=== PATIENT | female | born 1985 | race African-American/Black ===

== ENCOUNTER 2016-05-02 04:14 | Emergency (ER) | payer MEDICAID, BC ==
[~2016-05-02] VITALS: Ht 162.6 cm; Wt 52.6 kg
--- NOTE | 2016-05-02 04:14 | NUR ---
Patient to ER Chair 1 to gown for evaluation. Side rails up. Report given to BERNARD Veloz.
--- NOTE | 2016-05-02 04:16 | NUR ---
[employer] for medical clearence , hx of diabetes. Dr Molina aware.
[2016-05-02 04:36] VITALS: BP 137/80; PULSE 106; RESP 16; TEMP 98.4; O2SAT 97
--- NOTE | 2016-05-02 05:00 | NUR ---
ER at bedside examining patient.
[2016-05-02 05:15] VITALS: BP 137/80; PULSE 106; RESP 16; TEMP 98.4; O2SAT 97
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
== END 2016-05-02 05:16 ==
LOC: SED 04:14
DX: Z02.89 Encounter for other administrative examinations (principal); E03.9 Hypothyroidism, unspecified; E11.8 Type 2 diabetes mellitus with unspecified complications; Z88.8 Allergy status to other drugs, medicaments and biological substances; Z79.4 Long term (current) use of insulin
CPT/HCPCS: 99283

== ENCOUNTER 2016-06-25 23:53 | Emergency (ER) | payer BC, MEDICAID ==
[~2016-06-25] VITALS: Ht 170.2 cm; Wt 72.6 kg
[2016-06-25 23:55] VITALS: BP 127/88; PULSE 117; RESP 19; TEMP 99; O2SAT 100
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
--- NOTE | 2016-06-26 00:05 | NUR ---
MD [facility] at bedside examining pt
[2016-06-26 00:12] VITALS: BP 120/78; PULSE 107; RESP 20; TEMP 99; O2SAT 99
--- NOTE | 2016-06-26 00:12 | NUR ---
Patient given written and verbal discharge instructions and verbalizes understanding. ER MD [facility] discussed with patient the results and treatment provided. G Patient in stable condition. ID arm band removed. No rx given. Patient educated on pain management and to follow up with PMD. Pain Scale 0/10 Opportunity for questions provided and answered.
== END 2016-06-26 00:12 ==
LOC: SED 23:53
DX: Z02.89 Encounter for other administrative examinations (principal); Z88.8 Allergy status to other drugs, medicaments and biological substances; E11.9 Type 2 diabetes mellitus without complications
CPT/HCPCS: 99283

== ENCOUNTER 2016-06-26 12:02 | Emergency (ER) | payer MEDICAID ==
[~2016-06-26] VITALS: Ht 162.6 cm; Wt 71.7 kg
[2016-06-26 12:02] VITALS: BP_SYST 126
[2016-06-26 12:55] VITALS: BP_SYST 126
== END 2016-06-26 12:55 ==
LOC: SED 12:02
DX: J34.89 Other specified disorders of nose and nasal sinuses (principal); E11.9 Type 2 diabetes mellitus without complications; R03.0 Elevated blood-pressure reading, without diagnosis of hypertension; Z88.8 Allergy status to other drugs, medicaments and biological substances
CPT/HCPCS: 70160-TC; 99284